=== PATIENT | female | born 1980 | race Caucasian/White ===

== ENCOUNTER → 2020-12-09 | Outpatient (CLI) | payer OTHER ==
[~2020-12-09] MED LIST: ACETAMINOPHEN-1 EAC1 OR; ACETAMINOPHEN325 M1; CELEXA20 MG; CYMBALTA60 MG PO; IBUPROFEN 600600 M1 PO; KEFLEX500 MG PO; LANSINOH 60 GM60 GM TOP; NORCO 5-325 TA1 EACH PO; PRENATAL PO; ROBAXIN 750 MG750 M1 PO; ZANTAC 150MG T150 M1 PO
== END ==
LOC: M.RAD 11:18
PROVIDERS: ATTEND Family Medicine
DX: Z12.31 Encounter for screening mammogram for malignant neoplasm of breast (principal)